=== PATIENT | female | born 1935 | race Caucasian/White ===

== ENCOUNTER → 2017-03-01 | Outpatient (CLI) | payer OTHER ==
[2017-03-01 11:08] LABS: Basophils # (auto) 0 uL; Basophils % (auto) 0.2 % (0.0-2.0); Eosinophils # (auto) 0.2 uL; Hematocrit 39.3 % (36.0-46.0); Hemoglobin 12.9 g/dL (12.2-16.2); Lymphocytes # (auto) 1.9 uL; Mean Corpuscular Hemoglobin 27.7 pg (28.0-32.0); Mean Corpuscular Hgb Conc. 32.9 g/dL (32.0-36.0); Mean Corpuscular Volume 84.1 fL (80.0-100.0); Mean Platelet Volume 7.7 fL (7.4-10.4); Monocytes # (auto) 0.5 uL; Monocytes % (auto) 6.3 % (0.0-12.0); Neutrophils # (auto) 5.5 uL; Neutrophils % (auto) 67.5 % (37.0-80.0); Platelet Count (auto) 254 10^3/uL (140-450); Red Cell Distribution Width 15.3 % (11.6-16.0); White Blood Cell 8.2 10^3/uL (4.4-10.8)
[2017-03-01 11:32] LABS: Albumin 3.7 g/dL (3.4-5.0); BUN/Creatinine Ratio 20.5; Bilirubin, Total 0.9 mg/dL (0.2-1.0); Calcium 9.6 mg/dL (8.5-10.1); Potassium 4.7 mmol/L (3.5-5.1); Total Protein 7.8 g/dL (6.4-8.2)
[2017-03-01 14:40] LABS: Urine Bilirubin Negative (Negative); Urine Blood Negative /uL (Negative); Urine Color Yellow (Yellow); Urine Glucose Normal (Normal); Urine Ketone Negative (Negative); Urine Nitrite Negative (Negative); Urine RBC 1 /hpf (0 - 4); Urine Squamous Epithelial Cell FEW /hpf (<5); Urine Urobilinogen Normal (Negative); Urine pH 6.5 (5.0-8.0)
== END | disposition home or self-care (01) ==
LOC: LAB 10:18
PROVIDERS: ATTEND Internal Medicine
DX: Z00.00 Encounter for general adult medical examination without abnormal findings (principal); I10 Essential (primary) hypertension; E78.5 Hyperlipidemia, unspecified; E55.9 Vitamin D deficiency, unspecified
CPT/HCPCS: 36415; 80053; 80061; 81001; 82306; 83036; 84439; 84443; 85025

== ENCOUNTER → 2017-03-01 | Outpatient (CLI) | payer OTHER | END | disposition home or self-care (01) | LOC: XYW 11:07 | PROVIDERS: ATTEND Internal Medicine | DX: I50.9 Heart failure, unspecified (principal); I35.1 Nonrheumatic aortic (valve) insufficiency | CPT/HCPCS: 93306 ==

== ENCOUNTER → 2017-07-11 | Outpatient (CLI) | payer OTHER ==
[2017-07-11 10:49] LABS: BUN/Creatinine Ratio 20.9; Calcium 9.2 mg/dL (8.5-10.1); Potassium 5.3 mmol/L (3.5-5.1)
== END | disposition home or self-care (01) ==
LOC: LAB 10:02
PROVIDERS: ATTEND Internal Medicine
DX: E11.9 Type 2 diabetes mellitus without complications (principal); I10 Essential (primary) hypertension; Z79.891 Long term (current) use of opiate analgesic
CPT/HCPCS: 36415; 80048; 83036

== ENCOUNTER 2018-08-09 11:27 | Inpatient (IN) | payer OTHER ==
[~2018-08-09] VITALS: Ht 162.6 cm; Wt 100.7 kg
[2018-08-09] MEDS ORDERED: FUROSEMIDE 40 MG/4 ML VIAL IV ONE (11:45)
[2018-08-09 12:20] LABS: Basophils # (auto) 0 uL; Basophils % (auto) 0.2 % (0.0-2.0); Eosinophils # (auto) 0 uL; Eosinophils % (auto) 0.1 % (0.0-7.0); Hematocrit 32.3 % (36.0-46.0); Hemoglobin 11.1 g/dL (12.2-16.2); Lymphocytes # (auto) 0.6 uL; Mean Corpuscular Hemoglobin 31.2 pg (28.0-32.0); Mean Corpuscular Hgb Conc. 34.3 g/dL (32.0-36.0); Monocytes # (auto) 0.6 uL; Monocytes % (auto) 5.8 % (0.0-12.0); Neutrophils % (auto) 87.9 % (37.0-80.0); Nucleated Red Blood Cells % 0.1 %; Platelet Count (auto) 145 10^3/uL (140-450); Red Blood Cells 3.55 10^6/uL (4.0-5.20); Red Cell Distribution Width 14.6 % (11.8-14.3); White Blood Cell 10.3 10^3/uL (4.4-10.8)
[2018-08-09 12:58] LABS: Albumin 3.2 g/dL (3.4-5.0); BUN/Creatinine Ratio 21.3; Calcium 8.4 mg/dL (8.5-10.1); Magnesium 2.2 mg/dL (1.6-2.6); Potassium 3.7 mmol/L (3.5-5.1)
[2018-08-09 13:03] LABS: Bilirubin, Total 3.9 mg/dL (0.2-1.0); Total Protein 7.5 g/dL (6.4-8.2)
[2018-08-09] MEDS ORDERED: NITROGLYCERIN 0.4 MG SL TAB SL PRN (13:45)
[2018-08-09] MEDS ORDERED: ONDANSETRON HCL 4 MG/2 ML VIAL IV PRN (13:45)
[2018-08-09] MEDS ORDERED: TEMAZEPAM 15 MG CAP PO PRN (13:45)
[2018-08-09] MEDS ORDERED: ACETAMINOPHEN 500 MG TAB PO PRN (13:45)
[2018-08-09] MEDS ORDERED: MORPHINE SULFATE 4 MG/ML SYR/VIAL IV PRN ×2 (13:45)
[2018-08-09] MEDS ORDERED: LORazepam 0.5 MG TAB PO PRN (13:45)
[2018-08-09] MEDS: SODIUM CHLOR 0.9% PF (SALINE LOCK) 10ML VIAL/SYR IV SCH ×2 (14:19→22:24)
[2018-08-09] MEDS ORDERED: DEXTROSE (50%) 50ML SYRG IV PRN (14:30)
[2018-08-09] MEDS: ACCU-CHEK COMFORT CURVE STRIP VI SCH ×3 (16:02→23:50)
[2018-08-09] MEDS: InsuLIN REG 1unit/0.01ml Soln (100units/ml) SC SCH ×2 (16:02→19:53)
[2018-08-09 17:00] VITALS: BP 139/69
[2018-08-09 21:39] VITALS: BP 132/60
[2018-08-09] MEDS: CARVEDILOL 3.125 MG TAB PO SCH (22:25)
[2018-08-09] MEDS: ATORVASTATIN 20 MG TAB PO SCH (22:25)
[2018-08-10] MEDS: InsuLIN REG 1unit/0.01ml Soln (100units/ml) SC SCH ×7 (04:00→23:35)
[2018-08-10] MEDS: ACCU-CHEK COMFORT CURVE STRIP VI SCH ×6 (04:07→23:35)
[2018-08-10 05:18] VITALS: BP 132/60
[2018-08-10] MEDS: SODIUM CHLOR 0.9% PF (SALINE LOCK) 10ML VIAL/SYR IV SCH ×3 (06:01→21:26)
[2018-08-10 06:06] LABS: Basophils # (auto) 0 uL; Basophils % (auto) 0.1 % (0.0-2.0); Eosinophils # (auto) 0.2 uL; Eosinophils % (auto) 1.7 % (0.0-7.0); Hematocrit 31.2 % (36.0-46.0); Hemoglobin 10.7 g/dL (12.2-16.2); Lymphocytes # (auto) 1.4 uL; Lymphocytes % (auto) 14.2 % (10.0-50.0); Mean Corpuscular Hemoglobin 30.8 pg (28.0-32.0); Mean Corpuscular Hgb Conc. 34.2 g/dL (32.0-36.0); Mean Corpuscular Volume 89.8 fL (80.0-100.0); Monocytes # (auto) 0.8 uL; Neutrophils # (auto) 7.7 uL; Platelet Count (auto) 159 10^3/uL (140-450); Red Blood Cells 3.48 10^6/uL (4.0-5.20); Red Cell Distribution Width 14.5 % (11.8-14.3); White Blood Cell 10.1 10^3/uL (4.4-10.8)
[2018-08-10 06:19] LABS: Potassium 3.4 mmol/L (3.5-5.1)
[2018-08-10 06:34] LABS: BUN/Creatinine Ratio 25.2; Bilirubin, Total 3.6 mg/dL (0.2-1.0); Calcium 8.9 mg/dL (8.5-10.1); Total Protein 7.1 g/dL (6.4-8.2)
[2018-08-10 09:00] VITALS: BP 134/66
[2018-08-10] MEDS ORDERED: FUROSEMIDE 40 MG/4 ML VIAL IV SCH (10:00)
[2018-08-10] MEDS: ASPirin 81 mg TAB PO SCH (10:52)
[2018-08-10] MEDS: CARVEDILOL 3.125 MG TAB PO SCH ×2 (10:53→21:27)
[2018-08-10] MEDS: PANTOPRAZOLE 40 MG TAB PO SCH (10:53)
[2018-08-10] MEDS: POTASSIUM CHL 20 Meq TABLET PO SCH ×2 (10:53→21:27)
[2018-08-10] MEDS: ENOXAPARIN SOD 40 MG/0.4 ML SYRINGE SC SCH (10:54)
[2018-08-10] MEDS: ENALAPRIL MALEATE 2.5 MG TAB PO SCH (10:54)
[2018-08-10] MEDS: NITROGLYCERIN 0.2MG/HR TOPICAL PATCH TD SCH (10:55)
[2018-08-10 13:00] VITALS: BP 133/46
[2018-08-10] MEDS ORDERED: SIMV10TA84 PO (16:15)
[2018-08-10] MEDS ORDERED: NORT25CA PO (16:15)
[2018-08-10] MEDS ORDERED: FLUO-125 PO (16:15)
[2018-08-10] MEDS ORDERED: CLOP75TA28 PO (16:15)
[2018-08-10] MEDS ORDERED: LOSA25TA40 PO (16:15)
[2018-08-10] MEDS ORDERED: ATEN50TA PO (16:15)
[2018-08-10] MEDS ORDERED: GABA300C10 PO (16:15)
[2018-08-10] MEDS ORDERED: IOHEXOL 350 MG/ML 100ML IJ ONE (16:22)
[2018-08-10 17:00] VITALS: BP 137/66
[2018-08-10] MEDS: HYDROcodone-ACET 5/325MG TAB PO PRN (20:18)
[2018-08-10] MEDS: ATORVASTATIN 20 MG TAB PO SCH (21:27)
[2018-08-10] MEDS: GABAPENTIN 300 MG CAP PO SCH (21:27)
[2018-08-10 21:57] VITALS: BP 136/64
[2018-08-11] MEDS: InsuLIN REG 1unit/0.01ml Soln (100units/ml) SC SCH ×6 (04:00→23:30)
[2018-08-11] MEDS: ACCU-CHEK COMFORT CURVE STRIP VI SCH ×6 (04:09→23:30)
[2018-08-11 05:01] VITALS: BP 122/53
[2018-08-11] MEDS: SODIUM CHLOR 0.9% PF (SALINE LOCK) 10ML VIAL/SYR IV SCH ×3 (06:22→22:21)
[2018-08-11 09:04] VITALS: BP 134/54
[2018-08-11] MEDS: POTASSIUM CHL 20 Meq TABLET PO SCH ×5 (09:53→22:21)
[2018-08-11] MEDS: ENALAPRIL MALEATE 2.5 MG TAB PO SCH (09:53)
[2018-08-11] MEDS: ASPirin 81 mg TAB PO SCH (09:53)
[2018-08-11] MEDS: ENOXAPARIN SOD 40 MG/0.4 ML SYRINGE SC SCH (09:53)
[2018-08-11] MEDS: GABAPENTIN 300 MG CAP PO SCH ×2 (09:53→22:21)
[2018-08-11] MEDS: CARVEDILOL 3.125 MG TAB PO SCH ×2 (09:54→22:21)
[2018-08-11] MEDS: FUROSEMIDE 40 MG TAB PO SCH (09:54)
[2018-08-11] MEDS: PANTOPRAZOLE 40 MG TAB PO SCH (09:54)
[2018-08-11] MEDS: NITROGLYCERIN 0.2MG/HR TOPICAL PATCH TD SCH (09:55)
[2018-08-11 13:07] VITALS: BP 132/68
[2018-08-11 17:14] VITALS: BP 132/58
[2018-08-11] MEDS ORDERED: DOCUSATE SOD 100 MG CAP PO PRN (19:15)
[2018-08-11] MEDS ORDERED: LACTULOSE 20Gm/30ML SOLN PO PRN (19:15)
[2018-08-11 22:00] VITALS: BP 147/73
[2018-08-11] MEDS: ATORVASTATIN 20 MG TAB PO SCH (22:21)
[2018-08-11] MEDS: HYDROcodone-ACET 5/325MG TAB PO PRN (23:30)
[2018-08-12] MEDS: ACCU-CHEK COMFORT CURVE STRIP VI SCH ×5 (04:08→20:45)
[2018-08-12] MEDS: InsuLIN REG 1unit/0.01ml Soln (100units/ml) SC SCH ×5 (04:08→20:45)
[2018-08-12 05:00] VITALS: BP 143/64
[2018-08-12] MEDS: SODIUM CHLOR 0.9% PF (SALINE LOCK) 10ML VIAL/SYR IV SCH ×3 (05:49→21:37)
[2018-08-12] MEDS: PANTOPRAZOLE 40 MG TAB PO SCH (08:50)
[2018-08-12] MEDS: ENALAPRIL MALEATE 2.5 MG TAB PO SCH (08:51)
[2018-08-12] MEDS: ENOXAPARIN SOD 40 MG/0.4 ML SYRINGE SC SCH (08:51)
[2018-08-12] MEDS: FUROSEMIDE 40 MG TAB PO SCH (08:53)
[2018-08-12] MEDS: ASPirin 81 mg TAB PO SCH (08:53)
[2018-08-12] MEDS: CARVEDILOL 3.125 MG TAB PO SCH ×2 (08:53→21:37)
[2018-08-12] MEDS: GABAPENTIN 300 MG CAP PO SCH ×2 (08:53→21:36)
[2018-08-12] MEDS: POTASSIUM CHL 20 Meq TABLET PO SCH ×4 (08:54→21:39)
[2018-08-12 09:00] VITALS: BP 124/54
[2018-08-12] MEDS: NITROGLYCERIN 0.2MG/HR TOPICAL PATCH TD SCH (10:00)
[2018-08-12 13:00] VITALS: BP 126/60
[2018-08-12 17:00] VITALS: BP 130/64
[2018-08-12] MEDS: HYDROcodone-ACET 5/325MG TAB PO PRN (18:36)
[2018-08-12] MEDS: ATORVASTATIN 20 MG TAB PO SCH (21:36)
[2018-08-12 21:51] VITALS: BP 116/46
[2018-08-13] MEDS: InsuLIN REG 1unit/0.01ml Soln (100units/ml) SC SCH ×6 (00:20→20:38)
[2018-08-13] MEDS: ACCU-CHEK COMFORT CURVE STRIP VI SCH ×6 (00:20→20:00)
[2018-08-13 05:00] VITALS: BP 126/57
[2018-08-13] MEDS: SODIUM CHLOR 0.9% PF (SALINE LOCK) 10ML VIAL/SYR IV SCH ×3 (05:31→22:08)
[2018-08-13 08:42] VITALS: BP 120/87
[2018-08-13] MEDS: ASPirin 81 mg TAB PO SCH (09:27)
[2018-08-13] MEDS: GABAPENTIN 300 MG CAP PO SCH ×2 (09:27→22:10)
[2018-08-13] MEDS: ENOXAPARIN SOD 40 MG/0.4 ML SYRINGE SC SCH (09:28)
[2018-08-13] MEDS: PANTOPRAZOLE 40 MG TAB PO SCH (09:28)
[2018-08-13] MEDS: FUROSEMIDE 40 MG TAB PO SCH (09:28)
[2018-08-13] MEDS: ENALAPRIL MALEATE 2.5 MG TAB PO SCH (09:29)
[2018-08-13] MEDS: NITROGLYCERIN 0.2MG/HR TOPICAL PATCH TD SCH (09:29)
[2018-08-13] MEDS: CARVEDILOL 3.125 MG TAB PO SCH ×2 (09:30→22:09)
[2018-08-13] MEDS: POTASSIUM CHL 20 Meq TABLET PO SCH ×3 (09:30→22:09)
[2018-08-13] MEDS: HYDROcodone-ACET 5/325MG TAB PO PRN ×2 (10:30→22:10)
[2018-08-13 14:59] VITALS: BP 118/80
[2018-08-13 16:55] VITALS: BP 119/86
[2018-08-13 22:00] VITALS: BP 115/57
[2018-08-13] MEDS: ATORVASTATIN 20 MG TAB PO SCH (22:09)
[2018-08-14] MEDS: ACCU-CHEK COMFORT CURVE STRIP VI SCH ×5 (00:50→22:40)
[2018-08-14] MEDS: InsuLIN REG 1unit/0.01ml Soln (100units/ml) SC SCH ×5 (01:03→23:00)
[2018-08-14 05:30] VITALS: BP 115/43
[2018-08-14] MEDS: SODIUM CHLOR 0.9% PF (SALINE LOCK) 10ML VIAL/SYR IV SCH ×3 (06:02→22:39)
[2018-08-14 07:03] LABS: Basophils # (auto) 0 uL; Basophils % (auto) 0.3 % (0.0-2.0); Eosinophils # (auto) 0.4 uL; Hematocrit 30.8 % (36.0-46.0); Hemoglobin 10.4 g/dL (12.2-16.2); Lymphocytes % (auto) 12.7 % (10.0-50.0); Mean Corpuscular Hgb Conc. 33.9 g/dL (32.0-36.0); Mean Corpuscular Volume 88.5 fL (80.0-100.0); Monocytes # (auto) 0.6 uL; Monocytes % (auto) 8.6 % (0.0-12.0); Neutrophils # (auto) 5.5 uL; Neutrophils % (auto) 73.4 % (37.0-80.0); Platelet Count (auto) 206 10^3/uL (140-450); Red Blood Cells 3.48 10^6/uL (4.0-5.20); Red Cell Distribution Width 14.1 % (11.8-14.3); White Blood Cell 7.5 10^3/uL (4.4-10.8)
[2018-08-14 07:12] LABS: INR 1.09 (0.9-1.15); Partial Thromboplastin Time 34.3 sec (23.78-33.04); Prothrombin Time 11.6 sec (9.27-12.13)
[2018-08-14 07:15] LABS: Albumin 2.8 g/dL (3.4-5.0); Calcium 8.4 mg/dL (8.5-10.1); Potassium 4.2 mmol/L (3.5-5.1)
[2018-08-14 07:18] LABS: BUN/Creatinine Ratio 19.7; Bilirubin, Total 1.1 mg/dL (0.2-1.0)
[2018-08-14 08:00] VITALS: BP 128/58
[2018-08-14 08:40] VITALS: BP 128/58
[2018-08-14] MEDS: ASPirin 81 mg TAB PO SCH (08:48)
[2018-08-14] MEDS: NITROGLYCERIN 0.2MG/HR TOPICAL PATCH TD SCH (08:48)
[2018-08-14] MEDS: POTASSIUM CHL 20 Meq TABLET PO SCH (08:49)
[2018-08-14] MEDS: CARVEDILOL 3.125 MG TAB PO SCH ×2 (08:49→22:40)
[2018-08-14] MEDS: FUROSEMIDE 40 MG TAB PO SCH (08:49)
[2018-08-14] MEDS: ENALAPRIL MALEATE 2.5 MG TAB PO SCH (08:50)
[2018-08-14] MEDS: GABAPENTIN 300 MG CAP PO SCH ×2 (08:50→22:40)
[2018-08-14] MEDS: ENOXAPARIN SOD 40 MG/0.4 ML SYRINGE SC SCH (08:51)
[2018-08-14] MEDS: PANTOPRAZOLE 40 MG TAB PO SCH (10:00)
[2018-08-14] MEDS: HYDROcodone-ACET 5/325MG TAB PO PRN (10:36)
[2018-08-14] MEDS ORDERED: MORPHINE SULFATE 4 MG/ML SYR/VIAL IV PRN ×2 (10:45)
[2018-08-14] MEDS ORDERED: HYDROcodone-ACET 5/325MG TAB PO PRN (10:45)
[2018-08-14] MEDS ORDERED: DEXTROSE (50%) 50ML SYRG IV PRN (11:45)
[2018-08-14 12:34] VITALS: BP 130/50
[2018-08-14] MEDS: SODIUM CHLORIDE 0.9% 1,000 ML IV SCH (13:48)
[2018-08-14 16:45] VITALS: BP 132/59
[2018-08-14 22:00] VITALS: BP 133/62
[2018-08-14] MEDS: ATORVASTATIN 20 MG TAB PO SCH (22:40)
[2018-08-15] MEDS: SODIUM CHLORIDE 0.9% 1,000 ML IV SCH (04:57)
[2018-08-15 05:30] VITALS: BP 133/62
[2018-08-15] MEDS: SODIUM CHLOR 0.9% PF (SALINE LOCK) 10ML VIAL/SYR IV SCH ×3 (05:42→22:18)
[2018-08-15] MEDS: ACCU-CHEK COMFORT CURVE STRIP VI SCH ×4 (06:16→22:18)
[2018-08-15] MEDS: InsuLIN REG 1unit/0.01ml Soln (100units/ml) SC SCH ×4 (06:17→22:26)
[2018-08-15 06:30] LABS: Potassium 4.9 mmol/L (3.5-5.1)
[2018-08-15 06:35] LABS: BUN/Creatinine Ratio 20.9; Calcium 8.5 mg/dL (8.5-10.1)
[2018-08-15 08:00] VITALS: BP 128/58
[2018-08-15] MEDS: GABAPENTIN 300 MG CAP PO SCH ×2 (08:44→22:18)
[2018-08-15] MEDS: CARVEDILOL 3.125 MG TAB PO SCH ×2 (08:44→22:18)
[2018-08-15] MEDS: ASPirin 81 mg TAB PO SCH (08:44)
[2018-08-15] MEDS: PANTOPRAZOLE 40 MG TAB PO SCH (08:45)
[2018-08-15] MEDS: ENOXAPARIN SOD 30 MG/0.3 ML SYRINGE SC SCH (08:45)
[2018-08-15 08:50] VITALS: BP 138/52
[2018-08-15 12:52] VITALS: BP 119/55
[2018-08-15] MEDS ORDERED: SODIUM CHLORIDE 0.9% 1,000 ML IV SCH (14:30)
[2018-08-15 17:00] VITALS: BP 134/56
[2018-08-15 22:04] VITALS: BP 155/53
[2018-08-15] MEDS: ATORVASTATIN 20 MG TAB PO SCH (22:18)
[2018-08-16 05:01] VITALS: BP 143/54
[2018-08-16 05:39] LABS: Calcium 8.6 mg/dL (8.5-10.1); Potassium 4.6 mmol/L (3.5-5.1)
[2018-08-16] MEDS: ACCU-CHEK COMFORT CURVE STRIP VI SCH ×2 (06:04→11:30)
[2018-08-16] MEDS: SODIUM CHLOR 0.9% PF (SALINE LOCK) 10ML VIAL/SYR IV SCH ×2 (06:04→14:15)
[2018-08-16] MEDS: InsuLIN REG 1unit/0.01ml Soln (100units/ml) SC SCH ×2 (06:22→11:30)
[2018-08-16] MEDS: GABAPENTIN 300 MG CAP PO SCH (08:44)
[2018-08-16] MEDS: ASPirin 81 mg TAB PO SCH (08:44)
[2018-08-16] MEDS: PANTOPRAZOLE 40 MG TAB PO SCH (08:45)
[2018-08-16] MEDS: ENOXAPARIN SOD 30 MG/0.3 ML SYRINGE SC SCH (08:45)
[2018-08-16 09:00] VITALS: BP 157/64
[2018-08-16] MEDS ORDERED: CAR3125T PO (09:22)
[2018-08-16] MEDS ORDERED: PANT40T PO (09:22)
[2018-08-16] MEDS ORDERED: ATOR20TA50 PO (09:22)
[2018-08-16] MEDS ORDERED: CARVEDILOL 3.125 MG TAB PO SCH (10:00)
[2018-08-16] MEDS ORDERED: CLOPIDOGREL BISULFATE 75 MG TAB PO SCH (10:00)
[2018-08-16 11:28] LABS: Urine Bacteria NONE SEEN /hpf (None Seen); Urine Blood Negative /uL (Negative); Urine Specific Gravity 1.008 (1.001-1.035); Urine WBC 1 /hpf (0 - 5)
[2018-08-16 11:52] VITALS: BP 157/64
[2018-08-16 14:08] VITALS: BP 157/71
== END 2018-08-16 14:25 | DRG 291 ==
LOC: ER 11:27 → EDBD 11:27 → TELE 11:28 → TELE-WESTW 16:39 → WEST WING 08-14 15:02
PROVIDERS: ADMIT Internal Medicine; ATTEND Internal Medicine
DX: I13.0 Hypertensive heart and chronic kidney disease with heart failure and stage 1 through stage 4 chronic kidney disease, or unspecified chronic kidney disease (principal); I50.33 Acute on chronic diastolic (congestive) heart failure; N17.0 Acute kidney failure with tubular necrosis; J96.00 Acute respiratory failure, unspecified whether with hypoxia or hypercapnia; J84.9 Interstitial pulmonary disease, unspecified; E44.0 Moderate protein-calorie malnutrition; I69.354 Hemiplegia and hemiparesis following cerebral infarction affecting left non-dominant side; E87.1 Hypo-osmolality and hyponatremia; I27.20 Pulmonary hypertension, unspecified; E11.65 Type 2 diabetes mellitus with hyperglycemia; N18.9 Chronic kidney disease, unspecified; E11.22 Type 2 diabetes mellitus with diabetic chronic kidney disease; J44.9 Chronic obstructive pulmonary disease, unspecified; K43.9 Ventral hernia without obstruction or gangrene; I25.119 Atherosclerotic heart disease of native coronary artery with unspecified angina pectoris; D63.8 Anemia in other chronic diseases classified elsewhere; Z66 Do not resuscitate; Z90.49 Acquired absence of other specified parts of digestive tract; Z90.710 Acquired absence of both cervix and uterus
CPT/HCPCS: 36415; 36600; 71045; 71275; 80048; 80053; 80061; 81001; 82550; 82805; 82962; 83036; 83605; 83735; 83880; 84443; 84484; 85025; 85379; 85610; 85730; 87040; 93005; 93306; 96374; 97110; 97116; 97530; G0378; J1815